=== PATIENT | male | born 1995 | race African-American/Black ===

== ENCOUNTER 2025-06-23 12:14 | Emergency (ER) | payer MEDICAID ==
[~2025-06-23] VITALS: Ht 170.2 cm; Wt 60.3 kg
[2025-06-23 12:52] LABS: PLATELET COUNT (AUTO) 242 K/uL (150-450); RED BLOOD CELL COUNT(AUTO) 4.30 MIL/uL (4.5-6.0); RED CELL DISTRIBUTION WIDTH 13.6 % (11.5-15.0); WHITE BLOOD COUNT (AUTO) 5.0 K/uL (4.3-11.0)
[2025-06-23 13:10] LABS: ASPARTATE AMINOTRANSFERASE 29.0 U/L (15-37); CALCIUM, SERUM 8.7 mg/dL (8.5-10.1); CREATININE 1.0 mg/dL (0.6-1.3); SODIUM SERUM 140.0 mmol/L (136-145); TOTAL PROTEIN, SERUM 7.9 g/dL (6.4-8.2); UREA NITROGEN, BLOOD 12.0 mg/dL (7-18)
[2025-06-23] MEDS ORDERED: IOHEXOL-350 100 ML VIAL IV ONE (13:18)
[2025-06-23 13:46] LABS: APPEARANCE,URINE CLEAR (CLEAR); BLOOD, URINE NEGATIVE Ery/uL (NEGATIVE); LEUKOCYTE ESTERASE ,URINE NEGATIVE (NEGATIVE); NITRITE, URINE NEGATIVE (NEGATIVE); UGLUCOSE NEGATIVE (NEGATIVE)
[2025-06-23 13:56] LABS: ADD URINE CULTURE NO; SQUAMOUS EPITHELIAL CELL,UR None Seen /HPF (None Seen)
[2025-06-23] MEDS ORDERED: LIDOCAINE 5% (PATCH) 1 EA PATCH TP ONE (14:13)
[2025-06-23] MEDS ORDERED: CYCLOBENZAPRINE 10 MG TABLET ONE (14:14)
[2025-06-23] MEDS ORDERED: ACETAMINOPHEN 325 MG TABLET ONE (14:14)
[2025-06-23] MEDS: LIDOCAINE 5% (PATCH) 1 EA PATCH TP STA (14:39)
[2025-06-23] MEDS: ACETAMINOPHEN 325 MG TABLET PO ONE (14:39)
[2025-06-23] MEDS: CYCLOBENZAPRINE 10 MG TABLET PO ONE (14:40)
[2025-06-23] MEDS ORDERED: LIDO30AD10 TP (15:02)
[2025-06-23] MEDS ORDERED: CYCL5TAB PO (15:02)
[2025-06-23] MEDS ORDERED: IBUP-1955 PO (15:02)
[2025-06-23 17:27] VITALS: BP 106/65; TEMP 98.1; O2SAT 98
== END 2025-06-23 17:28 | disposition home or self-care (01) ==
LOC: ER 12:27
DX: R07.89 Other chest pain (principal); R10.84 Generalized abdominal pain; R53.1 Weakness
CPT/HCPCS: 99285; 74177; 85025; 80048; 83690; 80076; 81001; 36415; Q9967